=== PATIENT | male | born 1950 | race Caucasian/White ===

== ENCOUNTER → 2023-07-15 07:05 | Outpatient (REF) | payer MEDICARE, OTHER, SELFPAY | LOC: RAD 07:05 | PROVIDERS: ATTENDING PHYSICIAN Internal Medicine Hematology & Oncology; FAMILY PHYSICIAN Family Medicine | DX: I80.292 Phlebitis and thrombophlebitis of other deep vessels of left lower extremity (principal); I82.622 Acute embolism and thrombosis of deep veins of left upper extremity | CPT/HCPCS: 93971 ==